=== PATIENT | male | born 1990 | race Caucasian/White ===

== ENCOUNTER 2021-05-16 14:04 | Emergency (ER) | payer OTHER, SELFPAY ==
[2021-05-16 14:17] VITALS: BP 107/67; PULSE 66; TEMP 36.6; O2SAT 100
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
[2021-05-16] MEDS: MORPHine 4 MG/ML SYR IVP (15:08)
--- NOTE | 2021-05-16 15:08 | DI.RAD_ITS ---
Exam(s) XR WRIST RT COMPLETE EXAM: XR WRIST RT COMPLETE CLINICAL HISTORY: deformity R wrist, r/o fx TECHNIQUE: COMPARISON: No exams were available for comparison FINDINGS: Three views were obtained. There is a moderately comminuted moderately displaced fracture of the dis ginger radius with associated ulnar styloid fracture. No additional fracture seen involving the carpus. IMPRESSION: RADIATION DOSE DELIVERED: Total DLP
--- NOTE | 2021-05-16 15:08 | DI.RAD_ITS ---
Exam(s) XR HAND LT COMPLETE EXAM: XR HAND LT COMPLETE CLINICAL HISTORY: pain L dorsal hand over 5th MCP joint TECHNIQUE: COMPARISON: CR XR WRIST RT COMPLETE from 05/16/2021 CR XR WRIST RT COMPLETE from 05/16/2021 FINDINGS: Three views were obtained. There is no evidence of acute fracture or dislocation. IMPRESSION: RADIATION DOSE DELIVERED: Total DLP
[2021-05-16 15:17] VITALS: BP 114/66; PULSE 72; RESP 16; O2SAT 100
--- NOTE | 2021-05-16 15:45 | DI.RAD_ITS ---
Exam(s) XR WRIST RT LIMITED EXAM: XR WRIST RT LIMITED CLINICAL HISTORY: post reduction film TECHNIQUE: COMPARISON: CR XR WRIST RT COMPLETE from 05/16/2021 FINDINGS: Two portable views were obtained and show the wrist in a splint. Previously described comminuted fra cture of the distal radius again noted with associated ulnar styloid fracture. There is moderate dis placement of radial fracture fragments noted on the lateral view. IMPRESSION: RADIATION DOSE DELIVERED: Total DLP
--- NOTE | 2021-05-16 15:45 | DI.RAD_ITS ---
Exam(s) XR FLOURO OR C-ARM <1 HR EXAM: XR FLOURO OR C-ARM <1 HR CLINICAL HISTORY: R wrist fx TECHNIQUE: COMPARISON: No exams were available for comparison FINDINGS: C-arm fluoroscopy was utilized by Dr. Ritter during closed reduction of fracture of the distal radi us. Hard copy show improved reduction of the fracture fragments with the wrist in a splint. IMPRESSION: Fluoro dose was 0.0275 mGy RADIATION DOSE DELIVERED: Total DLP
--- NOTE | 2021-05-16 17:04 | NUR.NOTE ---
1651 moderate sedation for reduction pre VS 121/67, HR 80, 26RR, 100% RA, ETCO2 27 Dr. Hernandez, Dr. Matias, Jose RT and Trish FANG 165 Dr. Matias Proprofol 50mg IVP [address] Matias [address] Matias 165 10mg Propofolo 1655 VS 113/66,88,100% on 2L NC, 33 ETCO2, 16 RR [address] Mtaias [address] Matias [address] Matias [address] Matias 170, 98% 2L NC, 80, 37 ETCO2 1702 reduction completed, xrays and splint applied 1711 97% RA, 36 ETCO2, 118/77, 14
--- NOTE | 2021-05-16 17:12 | NUR.NOTE ---
awake, talking with and oriented.
[2021-05-16 17:36] VITALS: BP 112/62; PULSE 84; RESP 15; O2SAT 99
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
[2021-05-16 18:44] VITALS: BP 115/67; PULSE 80; RESP 16; O2SAT 99
== END 2021-05-16 18:55 | disposition home or self-care (01) ==
PROVIDERS: Emergency Provider Physician Assistant
DX: S52.591A Other fractures of lower end of right radius, initial encounter for closed fracture (principal); S52.611A Displaced fracture of right ulna styloid process, initial encounter for closed fracture; V19.3XXA Pedal cyclist (driver) (passenger) injured in unspecified nontraffic accident, initial encounter
CPT/HCPCS: 76000; 96374; 99284; 25605; 73100; 73110; 73130; J2270

== ENCOUNTER 2021-05-17 09:22 | Emergency (ER) | payer OTHER, SELFPAY ==
[2021-05-17 09:25] VITALS: BP 129/84; PULSE 74; TEMP 36.4; O2SAT 99
--- NOTE | 2021-05-17 09:41 | ED.GENADUL_ITS ---
Discharge Plan Disposition Patient Disposition: HOME Condition: Improving Discharge Details Clinical Impression: Closed fracture of right distal radius and ulna, Fracture of right wrist Primary Care Provider: Unknown,Unknown ED Provider: Jolene Mackey Home Meds and New Rx's Prescriptions: Continued albuterol 90 mcg/actuation Aerosol 90 mcg INHALATION Q4H RF: 0 oxycodone 5 mg tablet 5 mg PO Q6H PRN (Reason: pain) Qty: 14 RF: 0 acetaminophen 325 mg Tablet 650 mg PO QID RF: 0 Discharge Instructions Instructions: Wrist Fracture in Adults (ED) Additional Instructions: Please continue to encourage rest, ice, elevation. You may use Tylenol and/or ibuprofen as needed for discomfort. Please take as directed on the packaging. If this is unsuccessful at alleviating your discomfort you may augment this with oxycodone. Please not drive or drink alcohol when using the oxycodone. If you develop any new or worsening symptoms please seek care urgently once again. Please follow-up as previously discussed with orthopedic surgeon. Discharge Data Discharge Date/Time-TO BE ENTERED AT DEPARTURE: 05/17/21 10:28 Medical Decision Making Patient is a pleasant [id number] 31-year-old male presenting today with chief complaint of increased right wrist and hand pain. Patient was seen here yesterday and diagnosed with a displaced distal radius fracture. This was reduced in the emergency department by orthopedist. She did have a splint with applied after closed reduction. Patient reports to the orthopedist had advised that the Charles wrap was put on quite snugly to help conform the splint. He had been advised that he could potentially remove this to loosen it later in the evening but was very hesitant to do so. Completely here, his pain has continued to increase as has discoloration and swelling in his fingers. On exam, patient appears uncomfortable. He does have notable swelling to all the fingers of the right hand. Splint appears undamaged and appropriate position. Sling does appear to have his hand in a more downward position likely also contributing to his swelling. Charles wrap was removed. We will keep the splint in place. Believe this is likely associated with Charles wrap being take throughout the evening to help conformed the plaster. Patient has not use any NSAIDs. We will give him ibuprofen. With another dose of oxycodone will here. Plan to check a sling to help increase elevation of the hand as well as loosening Charles wrap. After removal of the Charles wrap, fingers did begin to pink up more, brisk capillary refill. Sensation is intact. Feels tight to move his fingers. After adjustment, patient reports that he feels night and day difference. He feels that he is ready to go home at this time. Return precautions were discussed. Encourage rest, ice, elevation. We again discussed the use of anti- inflammatories, Tylenol as well as the oxycodone he was prescribed. All his questions and concerns were addressed and he is in agreement this plan. Patient will call tomorrow morning schedule follow-up with orthopedic surgeon [place]. HPI General Mode of arrival: ambulatory . Date/Time Provider Initiated Documentation: 05/17/21 09:41 . Limitations to Documentation: no limitations . Information obtained by: patient, RN notes reviewed and old records reviewed . History of Present Illness 31 year old M presents to the emergency department w ith the chief complaint of right wrist/hand pain, described as moderate, with intensity rated at 6. Quality is described as aching, and is localized to the right and upper extremity. Patient reports no radiation. Patient started experiencing this day(s) (1) and it has been constant. No relieving factors improve symptom(s), No exacerbating factors reported . Patient notes no other symptoms.. Patient did receive the following treatments prior to arrival, other (tylenol, oxycodone) Related Data Home Medications Medication Instructions Recorded Confirmed albuterol 90 mcg INHALATION Q4H 05/16/21 05/17/21 oxycodone 5 mg PO Q6H PRN #14 tab 05/16/21 05/17/21 acetaminophen 650 mg PO QID 05/17/21 05/17/21 Previous Rx's Medication Instructions Recorded oxycodone 5 mg PO Q6H PRN #14 tab 05/16/21 Allergies Allergy/AdvReac Type Severity Reaction Status Date / Time doxycycline Allergy Unverified 05/17/21 09:28 General Stated Complaint: Orthopedic LEI: 3 Review of Systems Constitutional Constitutional: Reports as per HPI, Denies chills, Denies fever(s), Denies headache(s) and Denies weakness ENT Ears, Nose, Mouth, and Throat: Denies headache(s) Cardiovascular Cardiovascular: Reports as per HPI Respiratory Respiratory: Reports as per HPI and Denies cough Musculoskeletal Musculoskeletal: Reports as per HPI and Denies tingling Integumentary/Breasts Skin/Breast: Reports as per HPI, Denies rash and Denies wounds Neurologic Neurologic: Reports as per HPI, Denies headache(s), Denies tingling, Denies paresthesias and Denies weakness PFSH Medical History Asthma Surgical History H/O wisdom tooth extraction Social History Smoking/Tobacco Use Status: Never Smoking risk assessment performed?: Yes Alcohol Intake: current Alcohol Intake frequency: a few times a month Alcohol type: beer, wine and hard liquor Drug use: Occasionally Substance use type: marijuana Do you feel safe at home: Yes Do you feel safe in your relationship?: Yes Exam Const General: cooperative, healthy appearing, uncomfortable, no acute distress, well developed, well groomed and anxious Nutritional Appearance: average body habitus and well nourished Orientation: alert and awake Resp Effort & Inspection: normal respiratory effort, able to speak in complete sentences and no respiratory distress Cardio Rate: regular rate Rhythm: regular rhythm Skin General skin exam: no rashes or lesions noted Lesions: no lesions Rashes: no rashes Trauma: no lacerations or abrasions Neuro General: patient alert and patient awake Cognition: normal cognition Speech: speech normal Gait: normal gait Motor: muscle tone normal throughout Sensory Exam: no sensory deficits noted Extrem Right upper extremity: abnormal to inspection (splint in place, fingers swollen and painful) Psych Appearance: grossly normal and well kempt Mental Status: mental status grossly normal Speech and Movement: speech and movement normal Course Vital Signs Vital signs: Vital Signs Temperature 36.4 C L 05/17/21 09:25 Pulse 74 05/17/21 09:25 Blood Pressure 129/84 05/17/21 09:25 Pulse Oximetry 99 05/17/21 09:25 Temperature 36.4 C L 05/17/21 09:25 Temperature Source Temporal Artery Scan 05/17/21 09:25 Pulse 74 05/17/21 09:25 Respiratory Effort Non-Labored 05/17/21 09:27 Blood Pressure 129/84 05/17/21 09:25 Blood Pressure Position Sitting 05/17/21 09:25 Pulse Oximetry 99 05/17/21 09:25 Oxygen Delivery Method Room Air 05/17/21 09:25 Oxygen Flow Rate 0 05/17/21 09:25 Pain Level 6 05/17/21 09:25
[2021-05-17] MEDS: Ibuprofen 600 MG TAB (09:53)
[2021-05-17] MEDS: oxyCODONE 5 MG TAB PO (10:18)
== END 2021-05-17 10:28 | disposition home or self-care (01) ==
PROVIDERS: Emergency Provider Physician Assistant
DX: S52.591D Other fractures of lower end of right radius, subsequent encounter for closed fracture with routine healing (principal); S52.611D Displaced fracture of right ulna styloid process, subsequent encounter for closed fracture with routine healing; V19.3XXD Pedal cyclist (driver) (passenger) injured in unspecified nontraffic accident, subsequent encounter